=== PATIENT | female | born 1975 | race American Indian/Alaskan Native ===

== ENCOUNTER 2016-10-29 11:56 | Outpatient (CLI) | payer MEDICARE ==
--- NOTE | 2016-10-29 12:48 | Mammography Report ---
Bilateral digital screening mammogram with CAD. Findings: The breasts have a fibrofatty appearance. 2 biopsy clips are noted in the anterior left breast. There are no masses or suspicious calcifications. No architectural distortion is seen. Impression: No suspicious findings. BI-RADS code: 1. Recommendation: Annual screening.
== END 2016-10-29 11:57 | disposition home or self-care (01) ==
LOC: SPVWC 11:56
PROVIDERS: ATTEND Hospitalist
DX: Z12.31 Encounter for screening mammogram for malignant neoplasm of breast (principal); J45.909 Unspecified asthma, uncomplicated; D64.9 Anemia, unspecified; F41.9 Anxiety disorder, unspecified; Z87.891 Personal history of nicotine dependence
CPT/HCPCS: 77067; G0202